=== PATIENT | male | born 1995 | race American Indian/Alaskan Native ===

== ENCOUNTER 2019-03-22 15:54 | Emergency (ER) | payer SELFPAY ==
--- NOTE | 2019-03-22 16:19 | Event Note ---
ED Screening Note Date of service: 03/22/19 Time: 16:13 ED Screening Note: 24 y o presents to Ed today for psych eval mom states he has been withdrawn and not speaking or acting well unsure if off his meds This initial assessment/diagnostic orders/clinical plan/treatment(s) is/are subject to change based on patients health status, clinical progression and re- assessment by fellow clinical providers in the ED. Further treatment and workup at subsequent clinical providers discretion. Patient/guardian urged not to elope from the ED as their condition may be serious if not clinically assessed and managed. Initial orders include: labs, uds
[2019-03-22 16:49] LABS: Basophils # (Auto) 0.1 K/mm3 (0.0-0.1); Eosinophils # (Auto) 0.1 K/mm3 (0.0-0.4); Eosinophils % (Auto) 2.2 % (0.0-4.3); Hematocrit 43.1 % (35.5-45.6); Hemoglobin 14.8 gm/dl (11.8-15.2); Lymphocytes # (Auto) 1.8 K/mm3 (1.2-5.4); Lymphocytes % (Auto) 31.6 % (13.4-35.0); Mean Corpuscular HGB Conc 34 % (32-34); Mean Corpuscular Volume 92 fl (84-94); Monocytes # (Auto) 0.3 K/mm3 (0.0-0.8); Monocytes % (Auto) 6.3 % (0.0-7.3); Platelet Count 188 K/mm3 (140-440); Red Cell Distribution Width 13.6 % (13.2-15.2)
[2019-03-22 17:12] LABS: BUN/Creatinine Ratio 9; Blood Urea Nitrogen 13 mg/dL (9-20); Calcium 9.4 mg/dL (8.4-10.2); Hemolysis Index 3
--- NOTE | 2019-03-22 17:17 | Emergency Department Report ---
ED Psych HPI - General Chief Complaint: Psych Stated Complaint: EVALUATION Time Seen by Provider: 03/22/19 16:13 Source: family Mode of arrival: Ambulatory - History of Present Illness Initial Comments: 24-year-old male with history of schizophrenia brought into ED by his mother for mental health evaluation. Mother states patient has not been acting his normal self. States he has been more withdrawn, staying in his room, not eating, and not talking. Mother believes patient may be off his medications. Patient lives with his on. Since being here in the ED, patient has been speaking and singing to his nurse, however mother states he is still not his normal self. Patient answers some questions. Denies any SI or HI, denies auditory hallucinations. -: unknown Quality: constant Improves With: none Worsens With: none Associated Symptoms: denies other symptoms Treatments Prior to Arrival: none - Related Data Home Medications Medication Instructions Recorded Confirmed Last Taken No Known Home Medications [No 03/22/19 03/22/19 Unknown Reported Home Medications] Allergies Allergy/AdvReac Type Severity Reaction Status Date / Time cefprozil [From Cefzil] Allergy Hives Verified 03/22/19 16:12 ED Review of Systems ROS: Stated complaint: EVALUATION Other details as noted in HPI Comment: All other systems reviewed and negative Psychiatric: denies: auditory hallucinations, visual hallucinations, homicidal thoughts, suicidal thoughts ED Past Medical Hx - Past Medical History Hx Psychiatric Treatment: Yes (SCHIZOPHRENIC BIPOLAR) - Surgical History Past Surgical History?: No - Social History Smoking Status: Current Every Day Smoker Substance Use Type: Alcohol, Marijuana - Medications Home Medications: Home Medications Medication Instructions Recorded Confirmed Last Taken Type No Known Home Medications [No 03/22/19 03/22/19 Unknown History Reported Home Medications] ED Physical Exam - General Limitations: No Limitations General appearance: alert, in no apparent distress - Head Head exam: Present: atraumatic, normocephalic - Eye Eye exam: Present: normal appearance, PERRL, EOMI - ENT ENT exam: Present: mucous membranes moist - Neck Neck exam: Present: normal inspection - Respiratory Respiratory exam: Present: normal lung sounds bilaterally. Absent: respiratory distress - Cardiovascular Cardiovascular Exam: Present: regular rate, normal rhythm - GI/Abdominal GI/Abdominal exam: Absent: distended - Extremities Exam Extremities exam: Present: normal inspection - Neurological Exam Neurological exam: Present: alert, CN II-XII intact, normal gait - Psychiatric Psychiatric exam: Present: other (pt somewhat withdrawn, then begins to smile and sing, requires redirection) - Skin Skin exam: Present: warm, dry, intact, normal color ED Course Vital Signs 03/22/19 03/22/19 16:12 20:24 Temperature 98.5 F 98.6 F Pulse Rate 95 H 74 Respiratory 20 18 Rate Blood Pressure 140/88 Blood Pressure 122/69 [Right] O2 Sat by Pulse 100 100 Oximetry ED Medical Decision Making - Lab Data Result diagrams: 03/22/19 16:32 03/22/19 16:32 - Medical Decision Making 24 yo M with hx schizophrenia presents to ED with negative symptoms per mother who believes pt is off of his psych meds. Denies SI, HI. Pt placed on a 1013. Labs are unremakable. Vitals normal. Pt is medically clear of mental health evaluation. Will dispo per psych Critical care attestation.: If time is entered above; I have spent that time in minutes in the direct care of this critically ill patient, excluding procedure time. ED Disposition Clinical Impression: Schizophrenia with prominent negative symptoms Disposition: [id number] PSY HOSP/PSY UNIT Is pt being admited?: No Condition: Stable
[2019-03-22 17:33] LABS: Amphetamine Screen,Urine PRESUMPTIVE NEGATIVE; Benzodiazepines Screen,Urine PRESUMPTIVE NEGATIVE; Cocaine Screen,Urine PRESUMPTIVE NEGATIVE; Methadone Screen,Urine PRESUMPTIVE NEGATIVE; Opiate Screen,Urine PRESUMPTIVE NEGATIVE
[2019-03-22 17:44] LABS: Bacteria,Urine 1+ /HPF (Negative); Bilirubin,Urine NEG (Negative); Blood,Urine NEG (Negative); Color,Urine Yellow (Yellow); Mucus,Urine 1+ /HPF
[2019-03-22 17:56] LABS: Cannabinoid Screen,Urine PRESUMPTIVE POSITIVE
--- NOTE | 2019-03-23 11:06 | Consultation ---
History of Present Illness - Reason for Consult Consult date: 03/23/19 Reason for consult: Mental Health Evaluation Requesting physician: MILLI AGUILAR - Chief Complaint Chief complaint: "I want to stay focus" - History of Present Psychiatric Illness 24 y.o. AA male who presented to the ER for bizarre behavior. Today the patient was calm, but preoccupied during the assessment. He is fixated on not being focus. He could not explain what he meant by not being focus when asked. He was asked about not completing his ADL's and not sleeping, his answer was not logical. The patient had to be redirected several times to keep him on topic. At this time, the patient isn't a good historian. No gestures of SI/HI's. Medications and Allergies Allergies Allergy/AdvReac Type Severity Reaction Status Date / Time cefprozil [From Cefzil] Allergy Hives Verified 03/22/19 16:12 Home Medications Medication Instructions Recorded Confirmed Last Taken Type No Known Home Medications [No 03/22/19 03/22/19 Unknown History Reported Home Medications] Past psychiatric history - Past Medical History Past Medical History: No medical history Past Surgical History: No surgical history - past Psychiatric treatment and history psychiatric treatment history: Inpatient psy services. Unable to confirm or deny a fam psy hx. - Social History Social history: lives with family Mental Status Exam - Vital signs Last Vital Signs Temp 98 F 03/23/19 10:35 Pulse 63 03/23/19 10:35 Resp 16 03/23/19 10:35 BP 124/85 03/23/19 10:35 Pulse Ox 100 03/23/19 10:35 - Exam Narrative exam: MSE: Appearance: calm Behavior: regular eye contact Speech: regular rate and tone Mood: preoccupied Affect: flat Thought Process: loose associations Thought Content: no gestures of Si/HI's, responding to some type of stimuli Motor Activity: ambulatory Cognition: A/O x3 Insight: poor Judgment: poor Results Result Diagrams: 03/22/19 16:32 03/22/19 16:32 Abnormal lab results 03/22/19 03/22/19 03/22/19 Range/Units 16:32 17:15 17:15 Glucose 125 H (75-100) mg/dL Ur Specific [place] (1.003-1.030) Salicylates < 0.3 L (2.8-20.0) mg/dL Acetaminophen < 5.0 L (10.0-30.0) ug/mL 03/22/19 Range/Units Unknown Glucose (75-100) mg/dL Ur Specific [place] 1.032 H (1.003-1.030) Salicylates (2.8-20.0) mg/dL Acetaminophen (10.0-30.0) ug/mL All other labs normal. Assessment and Plan Assessment and plan: Impression: Unspecified Psychosis. Cannabis Use DO. Today the patient was calm, but preoccupied during the assessment. DDx: Bipolar DO with psychosis, Bipolar Do with psychosis, Substance Induced Psychosis Recommendation/Plan: Continue 1013 and start Zyprexa Zydis 5 mg PO ODT for psychosis. Attempted to discuss possinle metabolic side effects with the patient reference Zyprexa. Baseline Lipid Panel/A1c ordered for the AM. Dispo: The patient was referred to inpatient psy services. Will staff with Dr America Marquez.
[2019-03-23] MEDS ORDERED: ATIVAN IM PRN (14:07)
[2019-03-23] MEDS ORDERED: BENADRYL IM PRN (14:07)
[2019-03-24 08:35] LABS: Chol/HDL Ratio 3.05 %
--- NOTE | 2019-03-24 18:37 | Progress Note ---
Subjective - Reason for Consult Consult date: 03/24/19 Reason for consult: follow up - Chief Complaint Chief complaint: "I'm a little bit alright." 24 y.o. AA male who presented to the ER for bizarre behavior. Today the patient was calm, but preoccupied during the assessment. Speech was minimal and not logical when he did speak. Hygiene is poor. At this time, the patient isn't a good historian. No gestures of SI/HI's. Mental Status Exam - Exam Narrative exam: MSE: Appearance: calm Behavior: regular eye contact Speech: regular rate and tone Mood: preoccupied Affect: flat Thought Process: loose associations Thought Content: no gestures of Si/HI's, responding to internal stimuli Motor Activity: ambulatory Cognition: A/O x3 Insight: poor Judgment: poor Assessment and Plan Assessment and plan: Impression: Unspecified Psychosis. Cannabis Use DO. Today the patient was calm, but preoccupied during the assessment. lipid panel and a1c were unremarkable DDx: Bipolar DO with psychosis, Bipolar Do with psychosis, Substance Induced Psychosis Recommendation/Plan: Continue 1013 and start Zyprexa Zydis 5 mg PO ODT for psychosis. Attempted to discuss possible metabolic side effects with the patient reference Zyprexa. Dispo: The patient was referred to inpatient psy services. Will staff with Dr America Marquez. Mental Status Exam - Vital signs Last Vital Signs Temp 98.9 F 03/24/19 11:50 Pulse 93 H 03/24/19 11:50 Resp 20 03/24/19 11:50 BP 141/92 03/24/19 11:50 Pulse Ox 99 03/24/19 11:50
[2019-03-24 21:24] VITALS: BP 138/86
== END 2019-03-24 22:28 ==
LOC: ED 15:54 → EEVIPCON 15:54 → ED 03-24 22:28
DX: F20.9 Schizophrenia, unspecified (principal); F31.9 Bipolar disorder, unspecified; F17.200 Nicotine dependence, unspecified, uncomplicated; F12.90 Cannabis use, unspecified, uncomplicated; Z88.8 Allergy status to other drugs, medicaments and biological substances
CPT/HCPCS: 36415; 80048; 80061; 80307; 81001; 83036; 85025; 96372; 99285; J1200; J2060; 80320; G0480

== ENCOUNTER 2019-05-07 12:35 | Emergency (ER) | payer SELFPAY ==
[2019-05-07] MEDS ORDERED: NACL 0.9% 500 ML 500 ML IV ONE (12:44)
--- NOTE | 2019-05-07 12:47 | Event Note ---
ED Screening Note Date of service: 05/07/19 Time: 12:42 ED Screening Note: This is a 24 y.o. M. that presents to the ER with AMS and fever for several days. Mom states he was discharged from [facility] last Tuesday after 30 days of inpatient. PMH of bipolar and schizophrenia This initial assessment/diagnostic orders/clinical plan/treatment(s) is/are subject to change based on patients health status, clinical progression and re- assessment by fellow clinical providers in the ED. Further treatment and workup at subsequent clinical providers discretion. Patient/guardian urged not to elope from the ED as their condition may be serious if not clinically assessed and managed. Initial orders include: Labs
[2019-05-07 13:27] LABS: Basophils % (Auto) 0.7 % (0.0-1.8); Eosinophils # (Auto) 0.1 K/mm3 (0.0-0.4); Hematocrit 39.9 % (35.5-45.6); Hemoglobin 13.6 gm/dl (11.8-15.2); Lymphocytes # (Auto) 1.4 K/mm3 (1.2-5.4); Lymphocytes % (Auto) 23.6 % (13.4-35.0); Mean Corpuscular HGB Conc 34 % (32-34); Mean Corpuscular Volume 92 fl (84-94); Monocytes # (Auto) 0.4 K/mm3 (0.0-0.8); Monocytes % (Auto) 7.2 % (0.0-7.3); Platelet Count 203 K/mm3 (140-440); Red Blood Count 4.35 M/mm3 (3.65-5.03); Red Cell Distribution Width 14.6 % (13.2-15.2)
[2019-05-07 13:41] LABS: INR 1.2 (0.87-1.13)
--- NOTE | 2019-05-07 13:45 | XRay Report ---
CHEST 1 VIEW INDICATION: Sepsis. COMPARISON: None FINDINGS: Support devices: None. Heart: Within normal limits. Lungs/Pleura: No acute air space or interstitial disease. Additional findings: None. IMPRESSION: No acute findings. Signer Name: Candelario Sánchez Jr, MD Signed: 05/07/2019 1:41 PM Workstation Name: [id number]
[2019-05-07 13:48] LABS: Alanine Aminotransferase 9 units/L (7-56); Albumin 4.2 g/dL (3.9-5); BUN/Creatinine Ratio 13; Blood Urea Nitrogen 14 mg/dL (9-20); Calcium 9.1 mg/dL (8.4-10.2); Hemolysis Index 3
[2019-05-07] MEDS ORDERED: DECADRON IV ONE (14:27)
[2019-05-07] MEDS ORDERED: ROCEPHIN 2,000 MG in NACL 0.9% 50 ML IV STA (14:27)
[2019-05-07] MEDS ORDERED: XYLOCAINE 2%/ EPI 1:200,000 INFILTRATI ONE (14:27)
[2019-05-07] MEDS ORDERED: VANCOMYCIN 2,000 MG in NACL 0.9% 500 ML 500 ML IV ONE (14:27)
[2019-05-07] MEDS ORDERED: ZOVIRAX 800 MG in NACL 0.9% 100 ML IV STA (14:27)
[2019-05-07] MEDS ORDERED: NACL 0.9% 1000 ML IV ONE (14:30)
[2019-05-07] MEDS ORDERED: ROCEPHIN/NS 2 GM/100 ML 2 GM/100 ML BAG IV SCH (15:00)
[2019-05-07 15:06] LABS: INR 1.2 (0.87-1.13)
[2019-05-07 15:07] LABS: Partial Thromboplastin Time 29.3 Sec. (24.2-36.6)
--- NOTE | 2019-05-07 17:02 | Emergency Department Report ---
<SYLVIEKARSON Cass - Last Filed: 05/10/19 09:13> ED General Adult HPI - General Chief complaint: Altered Mental Status Stated complaint: ALTERED Time Seen by Provider: 05/07/19 12:42 - Related Data Home Medications Medication Instructions Recorded Confirmed Last Taken Divalproex Dr [Flaco VARGAS] 500 mg PO BID 05/07/19 05/07/19 05/02/19 LORazepam [Ativan] 0.5 mg PO TID 05/07/19 05/07/19 05/02/19 Quetiapine Fumarate [SEROquel] 400 mg PO QHS 05/07/19 05/07/19 05/02/19 clonazePAM [ Klonopin] 0.5 mg PO BID PRN 05/07/19 05/07/19 05/02/19 Allergies Allergy/AdvReac Type Severity Reaction Status Date / Time cefprozil [From Cefzil] Allergy Hives Verified 03/22/19 16:12 ED Past Medical Hx - Medications Home Medications: Home Medications Medication Instructions Recorded Confirmed Last Taken Type Divalproex Dr [Flaco VARGAS] 500 mg PO BID 05/07/19 05/07/19 05/02/19 History LORazepam [Ativan] 0.5 mg PO TID 05/07/19 05/07/19 05/02/19 History Quetiapine Fumarate [SEROquel] 400 mg PO QHS 05/07/19 05/07/19 05/02/19 History clonazePAM [ Klonopin] 0.5 mg PO BID PRN 05/07/19 05/07/19 05/02/19 History ED Medical Decision Making - Lab Data Result diagrams: 05/09/19 06:01 05/09/19 06:01 ED Disposition Clinical Impression: Psychosis, Catatonia Disposition: DC/TX-65 PSY HOSP/PSY UNIT Condition: Good Referrals: PRIMARY CARE, [Primary Care Provider] - 3-5 Days <SHOBHA YI - Last Filed: 05/14/19 23:43> ED General Adult HPI - General Source: family, RN notes reviewed Mode of arrival: Stretcher Limitations: Altered Mental Status, Physical Limitation - History of Present Illness Initial comments: This is a 24-year-old gentleman. This patient is not known to this provider previously. He has a history of psychiatric disease. Apparently, he arrives for altered mental status. His mother informs me that his last known well time is this past . Today is Tuesday. Reportedly, he had a temperature of 100 in triage, and a pulse of 145 bpm. The patient is altered. His mother does not know if he took any drugs. The patient currently is in stretcher, not moving extremities, awake, and not following commands. 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 There is no nausea or vomiting that she is aware of. He may have consumed recreational drugs. -: days(s) Consistency: other Improves with: other Worsens with: other Associated Symptoms: other ED Review of Systems ROS: Stated complaint: ALTERED Other details as noted in HPI Comment: Unobtainable due to pts medical conditions Neurological: confusion ED Past Medical Hx - Past Medical History Hx Psychiatric Treatment: Yes (SCHIZOPHRENIC BIPOLAR) - Social History Smoking Status: Unknown if ever smoked Substance Use Type: None ED Physical Exam - General Limitations: Altered Mental Status General appearance: in no apparent distress - Head Head exam: Present: atraumatic, normocephalic - Eye Eye exam: Present: normal appearance, PERRL - ENT ENT exam: Present: normal exam, mucous membranes moist, normal external ear exam - Neck Neck exam: Present: normal inspection. Absent: tenderness, meningismus - Respiratory Respiratory exam: Present: normal lung sounds bilaterally. Absent: respiratory distress - Cardiovascular Cardiovascular Exam: Present: regular rate, normal rhythm. Absent: bradycardia, systolic murmur, diastolic murmur, rubs, gallop - GI/Abdominal GI/Abdominal exam: Present: soft. Absent: distended, tenderness, guarding, rebound, rigid, pulsatile mass - Rectal Rectal exam: Present: deferred - Extremities Exam Extremities exam: Present: normal inspection (there is no clonus. There is no hyperreflexia.), other (2+ pulses noted in the bilateral upper, lower extremities. There is no long bone tenderness. Musculoskeletal compartments are soft. The pelvis is stable.) - Back Exam Back exam: Present: normal inspection. Absent: CVA tenderness (R), CVA tenderne ss (L), paraspinal tenderness, vertebral tenderness - Neurological Exam Neurological exam: Present: altered, other (there is no facial droop. The patient is nonverbal. Patient not moving arms or legs. Detailed neurologic examination not performed secondary to patient not cooperating/participating.) - Psychiatric Psychiatric exam: Present: other (patient is nonverbal) - Skin Skin exam: Present: warm, dry, intact, normal color. Absent: rash ED Course Vital Signs 05/07/19 05/07/19 05/07/19 12:42 13:15 13:16 Temperature 99 F 100 F H Pulse Rate 140 H 145 H 101 H Respiratory 20 Rate Blood Pressure 147/95 Blood Pressure [Right] O2 Sat by Pulse 96 Oximetry 05/07/19 05/07/19 05/07/19 13:20 13:30 13:46 Temperature Pulse Rate 103 H 98 H Respiratory 16 16 Rate Blood Pressure 156/104 156/106 Blood Pressure 156/106 [Right] O2 Sat by Pulse 100 100 100 Oximetry 05/07/19 05/07/19 05/07/19 14:00 14:16 14:30 Temperature Pulse Rate 92 H 96 H 89 Respiratory 11 L 20 14 Rate Blood Pressure 152/102 160/104 159/96 Blood Pressure 162/101 [Right] O2 Sat by Pulse 100 100 100 Oximetry 05/07/19 05/07/19 05/07/19 14:45 15:00 15:16 Temperature 98.1 F Pulse Rate 93 H 85 87 Respiratory 21 16 19 Rate Blood Pressure 157/97 157/97 158/96 Blood Pressure 158/96 [Right] O2 Sat by Pulse 100 100 100 Oximetry 05/07/19 05/07/19 05/07/19 16:00 17:00 17:08 Temperature 98.0 F 98.2 F Pulse Rate 66 Respiratory 24 Rate Blood Pressure 172/105 Blood Pressure [Right] O2 Sat by Pulse Oximetry 05/07/19 05/07/19 05/07/19 17:16 17:30 17:46 Temperature Pulse Rate 82 87 84 Respiratory 16 14 12 Rate Blood Pressure Blood Pressure [Right] O2 Sat by Pulse 100 99 100 Oximetry 05/07/19 05/07/19 05/07/19 18:00 18:15 18:30 Temperature Pulse Rate 90 82 85 Respiratory 14 16 15 Rate Blood Pressure 152/91 157/94 155/96 Blood Pressure [Right] O2 Sat by Pulse 100 100 100 Oximetry 05/07/19 05/07/19 05/07/19 19:00 19:30 19:46 Temperature Pulse Rate 101 H Respiratory 22 Rate Blood Pressure 167/100 165/92 148/91 Blood Pressure [Right] O2 Sat by Pulse 100 99 98 Oximetry 05/07/19 05/08/19 05/08/19 20:00 02:00 09:37 Temperature 98.5 F 98.6 F Pulse Rate 89 74 Respiratory 18 Rate Blood Pressure 165/92 Blood Pressure 136/80 126/69 [Right] O2 Sat by Pulse 98 100 99 Oximetry 05/08/19 05/09/19 05/09/19 20:28 02:15 07:00 Temperature 98.6 F 97.3 F L 98.2 F Pulse Rate 66 70 70 Respiratory 18 18 20 Rate Blood Pressure Blood Pressure 143/98 140/85 128/67 [Right] O2 Sat by Pulse 97 97 100 Oximetry 05/09/19 05/09/19 05/10/19 13:00 19:12 00:57 Temperature 98.2 F 98.5 F 98.2 F Pulse Rate 77 78 63 Respiratory 18 20 20 Rate Blood Pressure Blood Pressure 145/84 144/100 136/86 [Right] O2 Sat by Pulse 100 95 99 Oximetry 05/10/19 12:15 Temperature 98.2 F Pulse Rate 58 L Respiratory 18 Rate Blood Pressure Blood Pressure 135/74 [Right] O2 Sat by Pulse 100 Oximetry - Reevaluation(s) Reevaluation #1: 05/07/19 17:02 Differential diagnosis, including but not limited to: Meningitis, encephalitis, neuroleptic malignant syndrome, serotonin syndrome, toxic encephalopathy, conversion disorder, catatonia, medication side effect Assessment and plan: 24-year-old gentleman with psychiatric history, presenting with low-grade temperature, altered mental status, tachycardia. He is not hyperreflexic, there is no clonus, there is no leadpipe rigidity, and he is not hyperreflexic. For this reason, doubt neuroleptic malignant syndrome and serotonin syndrome. We will cover empirically with ceftriaxone, Decadron, acyclovir and vancomycin. Mother is at the bedside. We have strongly recommended spinal tap to exclude intracranial infectious process. Risks, benefits, alternatives discussed with mother, who has provided verbal and written consent. The patient will be placed on a hold, and a psychiatric consultation will be obtained. His tachycardia may have resolved, and his fever has reportedly resolved as well. I doubt intracranial infection, however, given altered mental status and initial abnormal vital signs, further diagnostic testing is required. Reevaluation #2: 05/07/19 20:30 Laboratory studies so far unremarkable. CT scan of the brain is negative for acute disease. Spinal tap is performed successfully. Of note, the patient did talk a little bit during his spinal tap, but was still not coherent and lucid. He was noted to be moving 4 extremities without difficulty. I suspect that this is most likely a psychiatric presentation. He's had no adverse events from his antibiotics. CSF results are pending at this time. Reportedly, his mother gave him food, which he tolerated without difficulty. There is been no active v omiting so far. Urinalysis is pending at this time. Reevaluation #3: 05/07/19 20:57 Nursing Team reports that patient is hallucinating stating "look at that shit over there on the wall." Since his spinal tap, the patient has become more conversant. There is no neck stiffness. The patient has full range of motion of neck and upper and lower extremities. Reevaluation #4: 05/07/19 21:33 CSF results not consistent with meningitis. Cryptococcal antigen pending. Reevaluation #5: 05/07/19 22:41 Gram stain unremarkable. CSF also unremarkable for cryptococcal antigen. Tachycardia resolved. The patient's presentation at this point in time is not consistent with invasive intracranial infection. His urinalysis is also not consistent with infectious etiology. The patient is noted to be moving 4 extremities. His abdomen was soft and benign. At this point in time, the most likely diagnosis is psychiatric in origin, therefore, a psychiatric consultation will be obtained. The patient is placed on a 1013. At this point in time, the patient does not appear to have an immediate medical contraindication to psychiatric admission, evaluation, consultation and placement. - Consultations Consultation #1: 05/09/19 21:52 Initial blood cultures are reviewed. These are likely contaminant. Antibiotic therapy is not indicated at this time. Patient has not spiked a fever while here in the emergency room. He continues to be medically suitable for psychiatric placement and disposition at this time. - Lumbar Puncture Consent Obtained: verbal consent, written consent, emergent situation Time Out Performed: Yes Indication for Procedure: fever work up, change in mental status Patient Position: Sitting Upright/Leaning F Skin Prep: Povidone-Iodine 1% Local Anesthetic Used: Lidocaine 2% Amount of anesthesia used (mls): 10 Spinal Needle Gauge: 20G Spinal Needle Length: 3in Interspace Used: L4-L5 Fluid Initially Obtained: clear Complications: none Patient Tolerated Procedure: well ED Medical Decision Making - Lab Data Result diagrams: 05/09/19 06:01 05/09/19 06:01 Vital Signs 05/07/19 05/07/19 05/07/19 12:42 13:15 15:00 Temperature 99 F 100 F H 98.1 F Pulse Rate 140 H 145 H Respiratory 20 Rate Blood Pressure 147/95 O2 Sat by Pulse 96 Oximetry Lab Results 05/07/19 05/07/19 05/07/19 Range/Units 13:00 13:00 13:00 WBC 6.0 (4.5-11.0) K/mm3 RBC 4.35 (3.65-5.03) M/mm3 Hgb 13.6 (11.8-15.2) gm/dl Hct 39.9 (35.5-45.6) % MCV 92 (84-94) fl MCH 31 (28-32) pg MCHC 34 (32-34) % RDW 14.6 (13.2-15.2) % Plt Count 203 (140-440) K/mm3 Lymph % (Auto) 23.6 (13.4-35.0) % [place] % (Auto) 7.2 (0.0-7.3) % Eos % (Auto) 2.0 (0.0-4.3) % Baso % (Auto) 0.7 (0.0-1.8) % Lymph # 1.4 (1.2-5.4) K/mm3 [place] # 0.4 (0.0-0.8) K/mm3 Eos # 0.1 (0.0-0.4) K/mm3 Baso # 0.0 (0.0-0.1) K/mm3 Seg Neutrophils % 66.5 (40.0-70.0) % Seg Neutrophils # 4.0 (1.8-7.7) K/mm3 PT 14.9 (12.2-14.9) Sec. INR 1.20 H (0.87-1.13) APTT (24.2-36.6) Sec. VBG pH (7.320-7.420) Sodium 141 (137-145) mmol/L Potassium 3.5 L (3.6-5.0) mmol/L Chloride 101.7 (98-107) mmol/L Carbon Dioxide 19 L (22-30) mmol/L Anion Gap 24 mmol/L BUN 14 (9-20) mg/dL Creatinine 1.1 (0.8-1.5) mg/dL Estimated GFR > 60 ml/min BUN/Creatinine Ratio 13 % Glucose 111 H (75-100) mg/dL Lactic Acid (0.7-2.0) mmol/L Calcium 9.1 (8.4-10.2) mg/dL Total Bilirubin 0.40 (0.1-1.2) mg/dL AST 13 (5-40) units/L ALT 9 (7-56) units/L Alkaline Phosphatase 71 (35-129) units/L Total Creatine Kinase (55-170) units/L Total Protein 7.5 (6.3-8.2) g/dL Albumin 4.2 (3.9-5) g/dL Albumin/Globulin Ratio 1.3 % TSH (0.270-4.200) mlU/mL Salicylates (2.8-20.0) mg/dL Acetaminophen (10.0-30.0) ug/mL Phenytoin (10.0-20.0) ug/mL Valproic Acid (50-100) ug/mL [place] (0.0-1.2) mmol/L Plasma/Serum Alcohol (0-0.07) % 05/07/19 05/07/19 05/07/19 Range/Units 13:00 13:00 14:23 WBC (4.5-11.0) K/mm3 RBC (3.65-5.03) M/mm3 Hgb (11.8-15.2) gm/dl Hct (35.5-45.6) % MCV (84-94) fl MCH (28-32) pg MCHC (32-34) % RDW (13.2-15.2) % Plt Count (140-440) K/mm3 Lymph % (Auto) (13.4-35.0) % [place] % (Auto) (0.0-7.3) % Eos % (Auto) (0.0-4.3) % Baso % (Auto) (0.0-1.8) % Lymph # (1.2-5.4) K/mm3 [place] # (0.0-0.8) K/mm3 Eos # (0.0-0.4) K/mm3 Baso # (0.0-0.1) K/mm3 Seg Neutrophils % (40.0-70.0) % Seg Neutrophils # (1.8-7.7) K/mm3 PT (12.2-14.9) Sec. INR (0.87-1.13) APTT (24.2-36.6) Sec. VBG pH 7.384 (7.320-7.420) Sodium (137-145) mmol/L Potassium (3.6-5.0) mmol/L Chloride (98-107) mmol/L Carbon Dioxide (22-30) mmol/L Anion Gap mmol/L BUN (9-20) mg/dL Creatinine (0.8-1.5) mg/dL Estimated GFR ml/min BUN/Creatinine Ratio % Glucose (75-100) mg/dL Lactic Acid 0.90 (0.7-2.0) mmol/L Calcium (8.4-10.2) mg/dL Total Bilirubin (0.1-1.2) mg/dL AST (5-40) units/L ALT (7-56) units/L Alkaline Phosphatase (35-129) units/L Total Creatine Kinase 155 (55-170) units/L Total Protein (6.3-8.2) g/dL Albumin (3.9-5) g/dL Albumin/Globulin Ratio % TSH (0.270-4.200) mlU/mL Salicylates (2.8-20.0) mg/dL Acetaminophen (10.0-30.0) ug/mL Phenytoin (10.0-20.0) ug/mL Valproic Acid (50-100) ug/mL [place] (0.0-1.2) mmol/L Plasma/Serum Alcohol (0-0.07) % 05/07/19 05/07/19 05/07/19 Range/Units 14:23 14:23 14:35 WBC (4.5-11.0) K/mm3 RBC (3.65-5.03) M/mm3 Hgb (11.8-15.2) gm/dl Hct (35.5-45.6) % MCV (84-94) fl MCH (28-32) pg MCHC (32-34) % RDW (13.2-15.2) % Plt Count (140-440) K/mm3 Lymph % (Auto) (13.4-35.0) % [place] % (Auto) (0.0-7.3) % Eos % (Auto) (0.0-4.3) % Baso % (Auto) (0.0-1.8) % Lymph # (1.2-5.4) K/mm3 [place] # (0.0-0.8) K/mm3 Eos # (0.0-0.4) K/mm3 Baso # (0.0-0.1) K/mm3 Seg Neutrophils % (40.0-70.0) % Seg Neutrophils # (1.8-7.7) K/mm3 PT 14.9 (12.2-14.9) Sec. INR 1.20 H (0.87-1.13) APTT 29.3 (24.2-36.6) Sec. VBG pH (7.320-7.420) Sodium (137-145) mmol/L Potassium (3.6-5.0) mmol/L Chloride (98-107) mmol/L Carbon Dioxide (22-30) mmol/L Anion Gap mmol/L BUN (9-20) mg/dL Creatinine (0.8-1.5) mg/dL Estimated GFR ml/min BUN/Creatinine Ratio % Glucose (75-100) mg/dL Lactic Acid (0.7-2.0) mmol/L Calcium (8.4-10.2) mg/dL Total Bilirubin (0.1-1.2) mg/dL AST (5-40) units/L ALT (7-56) units/L Alkaline Phosphatase (35-129) units/L Total Creatine Kinase (55-170) units/L Total Protein (6.3-8.2) g/dL Albumin (3.9-5) g/dL Albumin/Globulin Ratio % TSH 1.200 (0.270-4.200) mlU/mL Salicylates < 0.3 L (2.8-20.0) mg/dL Acetaminophen (10.0-30.0) ug/mL Phenytoin 0.9 L (10.0-20.0) ug/mL Valproic Acid < 2.8 L (50-100) ug/mL [place] 0.1 (0.0-1.2) mmol/L Plasma/Serum Alcohol (0-0.07) % 05/07/19 05/07/19 05/07/19 Range/Units 14:35 14:35 14:36 WBC (4.5-11.0) K/mm3 RBC (3.65-5.03) M/mm3 Hgb (11.8-15.2) gm/dl Hct (35.5-45.6) % MCV (84-94) fl MCH (28-32) pg MCHC (32-34) % RDW (13.2-15.2) % Plt Count (140-440) K/mm3 Lymph % (Auto) (13.4-35.0) % [place] % (Auto) (0.0-7.3) % Eos % (Auto) (0.0-4.3) % Baso % (Auto) (0.0-1.8) % Lymph # (1.2-5.4) K/mm3 [place] # (0.0-0.8) K/mm3 Eos # (0.0-0.4) K/mm3 Baso # (0.0-0.1) K/mm3 Seg Neutrophils % (40.0-70.0) % Seg Neutrophils # (1.8-7.7) K/mm3 PT (12.2-14.9) Sec. INR (0.87-1.13) APTT (24.2-36.6) Sec. VBG pH (7.320-7.420) Sodium (137-145) mmol/L Potassium (3.6-5.0) mmol/L Chloride (98-107) mmol/L Carbon Dioxide (22-30) mmol/L Anion Gap mmol/L BUN (9-20) mg/dL Creatinine (0.8-1.5) mg/dL Estimated GFR ml/min BUN/Creatinine Ratio % Glucose (75-100) mg/dL Lactic Acid 0.70 (0.7-2.0) mmol/L Calcium (8.4-10.2) mg/dL Total Bilirubin (0.1-1.2) mg/dL AST (5-40) units/L ALT (7-56) units/L Alkaline Phosphatase (35-129) units/L Total Creatine Kinase (55-170) units/L Total Protein (6.3-8.2) g/dL Albumin (3.9-5) g/dL Albumin/Globulin Ratio % TSH (0.270-4.200) mlU/mL Salicylates (2.8-20.0) mg/dL Acetaminophen < 5.0 L (10.0-30.0) ug/mL Phenytoin (10.0-20.0) ug/mL Valproic Acid (50-100) ug/mL [place] (0.0-1.2) mmol/L Plasma/Serum Alcohol < 0.01 (0-0.07) % - EKG Data -: EKG Interpreted by Ar EKG shows normal: sinus rhythm Rate: normal - EKG Data When compared to previous EKG there are: previous EKG unavailable 05/07/19 17:06 This is a sinus rhythm, 92 bpm, normal axis, QTC within normal limits, there is no motion artifact, the EKG is unremarkable, the EKG is not consistent with ST elevation myocardial infarction. there Is no prior for comparison. - Radiology Data Radiology results: report reviewed, image reviewed . The chest is negative for acute disease, Noncontrast CT scan of the brain: Critical care attestation.: If time is entered above; I have spent that time in minutes in the direct care of this critically ill patient, excluding procedure time. ED Disposition Is pt being admited?: No Does the pt Need Aspirin: No
--- NOTE | 2019-05-07 17:09 | Cat Scan Report ---
CT head/brain wo con INDICATION / CLINICAL INFORMATION: 24 years Male; ams. TECHNIQUE: Routine CT head without contrast. All CT scans at this location are performed using CT dos e reduction for ALARA by means of automated exposure control. COMPARISON: None. FINDINGS: BRAIN / INTRACRANIAL CONTENTS: No acute hemorrhage, mass effect, midline shift, hydrocephalus, or acu te, large territorial infarct. No chronic infarct or focal atrophy. Normal brain volume and ventricul ar/sulcal size for age. No significant white matter abnormality. CRANIOCERVICAL JUNCTION: No significant abnormality. ORBITS: No significant abnormality of visualized orbits. SINUSES / MASTOIDS: Mild to moderate mucosal thickening seen in the ethmoids. Mastoid air cells on th e left are underdeveloped. ADDITIONAL FINDINGS: None. IMPRESSION: 1. No focal mass, hemorrhage, hydrocephalus, or acute, large territorial infarct. Signer Name: Chito Mullins MD, III Signed: 05/07/2019 5:05 PM Workstation Name: [id number]
[2019-05-07] MEDS ORDERED: XYLOCAINE 2%/EPI 1:100,000 INFILTRATI ONE (17:51)
[2019-05-07] MEDS ORDERED: ATIVAN ONE (19:49)
[2019-05-07] MEDS ORDERED: ATIVAN IV ONE (19:50)
[2019-05-07 20:33] LABS: Glucose,CSF 66 mg/dL
[2019-05-07 20:54] LABS: Appearance,CSF Clear
[2019-05-07 21:07] LABS: Bilirubin,Urine NEG (Negative); Blood,Urine NEG (Negative); Color,Urine Yellow (Yellow); Mucus,Urine FEW /HPF; Protein,Urine <15 mg/dL mg/dL (Negative); Urobilinogen,Urine < 2.0 mg/dL (<2.0); WBC,Urine < 1.0 /HPF (0.0-6.0)
[2019-05-07 21:28] LABS: Red Blood Cell,CSF 0 /mm3 (0-0); White Blood Cell,CSF 0 /mm3 (1-10)
[2019-05-07 21:29] LABS: Basophils CSF 0 %
[2019-05-07] MEDS ORDERED: HALDOL IM PRN (22:42)
[2019-05-07] MEDS ORDERED: ATIVAN IM PRN (22:42)
--- NOTE | 2019-05-08 09:41 | Consultation ---
History of Present Illness - Reason for Consult Consult date: 05/08/19 Reason for consult: Mental Health Evaluation Requesting physician: SHOBHA YI - Chief Complaint Chief complaint: "The patient does not cooperate" - History of Present Psychiatric Illness 24 y.o. AA male who presented to the ER for AMS. This patient is known to me. Today the patient was calm, but uncooperative during the assessment. He would not answer any questions asked of him. Several attempts was made to engage the patient, but was unsuccessful. Medications and Allergies Allergies Allergy/AdvReac Type Severity Reaction Status Date / Time cefprozil [From Cefzil] Allergy Hives Verified 03/22/19 16:12 Home Medications Medication Instructions Recorded Confirmed Last Taken Type Divalproex Dr [DepaKOTE DR] 500 mg PO BID 05/07/19 05/07/19 05/02/19 History LORazepam [Ativan] 0.5 mg PO TID 05/07/19 05/07/19 05/02/19 History Quetiapine Fumarate [SEROquel] 400 mg PO QHS 05/07/19 05/07/19 05/02/19 History clonazePAM [ Klonopin] 0.5 mg PO BID PRN 05/07/19 05/07/19 05/02/19 History Active Meds: Active Medications Haloperidol Lactate (Haldol) 5 mg IM Q6HR PRN PRN Reason: Agitation Ceftriaxone Sodium (Rocephin/Ns 2 Gm/100 Ml) 2 gm in 100 mls @ 200 mls/hr IV ONCE FELIX Last Infusion: 05/07/19 16:30 Dose: Infused Documented by: Lorazepam (Ativan) 2 mg IM Q4HR PRN PRN Reason: Agitation Past psychiatric history - Past Medical History Past Medical History: other (Unable to obtain ) Past Surgical History: Other (Unable to obtain ) - past Psychiatric treatment and history psychiatric treatment history: Unable to obtain a psy hx and fam psy hx. - Social History Social history: lives with family Mental Status Exam - Vital signs Last Vital Signs Temp 98.5 F 05/08/19 02:00 Pulse 89 05/08/19 02:00 Resp 18 05/08/19 02:00 BP 136/80 05/08/19 02:00 Pulse Ox 100 05/08/19 02:00 - Exam Narrative exam: Unable to complete the MSE because the patient isn't cooperative. Results Result Diagrams: 05/09/19 06:01 05/09/19 06:01 Abnormal lab results 05/07/19 05/07/19 05/07/19 Range/Units 13:00 13:00 14:23 INR 1.20 H (0.87-1.13) Potassium 3.5 L (3.6-5.0) mmol/L Carbon Dioxide 19 L (22-30) mmol/L Glucose 111 H (75-100) mg/dL Salicylates < 0.3 L (2.8-20.0) mg/dL Acetaminophen (10.0-30.0) ug/mL Phenytoin 0.9 L (10.0-20.0) ug/mL Valproic Acid < 2.8 L (50-100) ug/mL 05/07/19 05/07/19 Range/Units 14:35 14:35 INR 1.20 H (0.87-1.13) Potassium (3.6-5.0) mmol/L Carbon Dioxide (22-30) mmol/L Glucose (75-100) mg/dL Salicylates (2.8-20.0) mg/dL Acetaminophen < 5.0 L (10.0-30.0) ug/mL Phenytoin (10.0-20.0) ug/mL Valproic Acid (50-100) ug/mL All other labs normal. Assessment and Plan Assessment and plan: Impression: Today the patient was not cooperative during the assessment. Phenytoin 0.9, assigned nurse was informed. UDS pending. Recommendation/Plan: Continue 1013 and gather collateral information from [facility]. Attempt to reassess the patient in 24 hours. Dispo: Once the patient is assessed, proper dispo will be determined. Staffed with Dr America Marquez.
[2019-05-08] MEDS ORDERED: ROCEPHIN/NS 1 GM/50 ML 1 GM/50 ML BAG IV ONE (11:20)
--- NOTE | 2019-05-08 11:33 | Event Note ---
Date: 05/08/19 BLOOD CULTURES POS FOR GRAM POS [facility] PER LAB THEY HAVE NOT IDENTIFIED SPECIES OF NOW AND DO NOT KNOW IF ITS CONTAMINATE. IT IS IN 2 BOTTLES. WILL CHECK CBC NOW AND DAILY CONTINUE ROCEPHIN BID FOR NOW PSYCH TO SEE TOMORROW. DISCUSSED WITH DR GARCIA
[2019-05-08 14:11] LABS: Basophils # (Auto) 0.1 K/mm3 (0.0-0.1); Basophils % (Auto) 1.5 % (0.0-1.8); Eosinophils # (Auto) 0.2 K/mm3 (0.0-0.4); Eosinophils % (Auto) 4.4 % (0.0-4.3); Hematocrit 38.7 % (35.5-45.6); Hemoglobin 13.2 gm/dl (11.8-15.2); Lymphocytes # (Auto) 1.6 K/mm3 (1.2-5.4); Lymphocytes % (Auto) 30.3 % (13.4-35.0); Mean Corpuscular HGB Conc 34 % (32-34); Mean Corpuscular Volume 92 fl (84-94); Monocytes # (Auto) 0.5 K/mm3 (0.0-0.8); Monocytes % (Auto) 8.6 % (0.0-7.3); Platelet Count 225 K/mm3 (140-440); Red Cell Distribution Width 14.8 % (13.2-15.2)
[2019-05-08 15:20] LABS: BUN/Creatinine Ratio TNR; Blood Urea Nitrogen TNR mg/dL (9-20); Calcium TNR mg/dL (8.4-10.2); Hemolysis Index TNR
[2019-05-08 15:28] LABS: Amphetamine Screen,Urine PRESUMPTIVE NEGATIVE; Benzodiazepines Screen,Urine PRESUMPTIVE NEGATIVE; Methadone Screen,Urine PRESUMPTIVE NEGATIVE; Opiate Screen,Urine PRESUMPTIVE NEGATIVE
[2019-05-08 15:52] LABS: Cannabinoid Screen,Urine PRESUMPTIVE POSITIVE; Cocaine Screen,Urine PRESUMPTIVE POSITIVE
[2019-05-09 06:14] LABS: Basophils # (Auto) 0.1 K/mm3 (0.0-0.1); Basophils % (Auto) 0.9 % (0.0-1.8); Eosinophils # (Auto) 0.3 K/mm3 (0.0-0.4); Eosinophils % (Auto) 4.8 % (0.0-4.3); Hematocrit 38.8 % (35.5-45.6); Hemoglobin 13.3 gm/dl (11.8-15.2); Lymphocytes # (Auto) 2.6 K/mm3 (1.2-5.4); Lymphocytes % (Auto) 42.8 % (13.4-35.0); Mean Corpuscular HGB Conc 34 % (32-34); Mean Corpuscular Volume 92 fl (84-94); Monocytes # (Auto) 0.4 K/mm3 (0.0-0.8); Monocytes % (Auto) 7.2 % (0.0-7.3); Platelet Count 208 K/mm3 (140-440); Red Blood Count 4.22 M/mm3 (3.65-5.03); Red Cell Distribution Width 14.5 % (13.2-15.2)
[2019-05-09 06:38] LABS: BUN/Creatinine Ratio 9; Blood Urea Nitrogen 8 mg/dL (9-20); Hemolysis Index 10
--- NOTE | 2019-05-09 14:31 | Progress Note ---
Subjective - Reason for Consult Consult date: 05/09/19 Reason for consult: Psychiatric Follow-up Evaluation - Chief Complaint Chief complaint: Patient is selectively mute. Patient is a 24 y.o. AA male who presented to the ER for AMS. This patient is known to me. Today the patient was calm, but uncooperative during the assessment. He would not answer any questions asked of him. Several attempts was made to engage the patient, but was unsuccessful. Patient stares blankly at provider but refuses to speak. Patient is guarded and withdrawn. Per security, mom states that patient is mute because he is without his Ativan. Mental Status Exam - Vital signs Last Vital Signs Temp 98.2 F 05/09/19 07:00 Pulse 70 05/09/19 07:00 Resp 20 05/09/19 07:00 BP 128/67 05/09/19 07:00 Pulse Ox 100 05/09/19 07:00 - Exam Narrative exam: Unable to complete the MSE because the patient isn't cooperative. Assessment and Plan Impression: Today the patient is uncooperative during the assessment. Patient is selectively mute. Phenytoin 0.9, assigned nurse was informed. UDS positive for cocaine and marijuana. Recommendation/Plan: Continue 1013 and gather collateral information from [facility]. Attempt to reassess the patient in 24 hours. Disposition: Once the patient is assessed, proper disposition will be determined. Will staff with Dr. America Marquez.
--- NOTE | 2019-05-10 10:10 | Progress Note ---
Subjective - Reason for Consult Consult date: 05/10/19 Reason for consult: Psychiatry Follow-up - Chief Complaint Chief complaint: 'The patient refuse to communicate" 24 y.o. AA male who presented to the ER for AMS. This patient is known to me. Today the patient was calm, but still unwilling to talk during the assessment. Several attempts was made to engage the patient, but was unsuccessful. The patient has a hx of psychosis. Mental Status Exam - Vital signs Last Vital Signs Temp 98.2 F 05/10/19 00:57 Pulse 63 05/10/19 00:57 Resp 20 05/10/19 00:57 BP 136/86 05/10/19 00:57 Pulse Ox 99 05/10/19 00:57 - Exam Narrative exam: Unable to complete the MSE because the patient refused to cooperate. Assessment and Plan Impression: Hx of Psychosis. Today the patient was not cooperative during the assessment. Phenytoin 0.9, assigned nurse was informed. The patient was positive for marijuana/cocaine. Recommendation/Plan: Continue 1013. Dispo: The patient was accepted at [facility] for inpatient psy services. Will staff with Dr America Marquez.
[2019-05-10 12:16] VITALS: BP 135/74
== END 2019-05-10 12:15 ==
LOC: ED 12:35 → EEVIPCON 12:35 → ED 05-10 12:15
DX: R41.82 Altered mental status, unspecified (principal); F25.0 Schizoaffective disorder, bipolar type; Z88.8 Allergy status to other drugs, medicaments and biological substances
CPT/HCPCS: 36415; 62270; 70450; 71045; 80048; 80053; 80164; 80178; 80185; 80307; 81001; 82140; 82550; 82805; 82947; 84160; 84443; 85025; 85610; 85730; 86403; 87040; 87086; 87116; 89051; 93005; 93010; 96361; 96365; 96366; 96367; 96368; 96372; 96375; 99285; J0133; J0696; J1100; J2060; J3370; J7030; J7040; 80320; G0480